=== PATIENT | male | born 1985 | race Two or more races ===

== ENCOUNTER 2020-08-23 14:33 | Emergency (ER) | payer MEDICAID ==
[~2020-08-23] VITALS: Ht 182.9 cm; Wt 115.0 kg
[~2020-08-23 14:33] MED LIST: LISI-170 PO; OMEP20CA9
--- NOTE | 2020-08-23 14:47 | NUR ---
PT MIGUEL FROM [facility] [place]. PER EMS PT HAS HAD CP X1 DAY. HX OF HTN, IS NONCOMPLIANT WITH PRESCRIBED LISINIPRIL. BP CURRENTLY 156/107. PER EMS PT GOT 324 CHEWABLE ASPIRIN AND 1 NITRO TAB AT 1400, THIS DID NOT HELP THE PAIN. PT RESTING IN [facility], MONITORING IN PLACE, EKG DONE, NADN AT THIS TIME, WCTM.
[2020-08-23] MEDS ORDERED: ONDANSETRON 2MG/ML, 2ML ONE (14:59)
[2020-08-23] MEDS ORDERED: SODIUM CHLORIDE FLUSH 10ML SYR IVF ONE (15:00)
[2020-08-23] MEDS ORDERED: ONDANSETRON 2MG/ML, 2ML IVPush ONE (15:00)
[2020-08-23] MEDS ORDERED: SODIUM CHLORIDE 0.9% 1,000ML IVBOLUS ONE (15:00)
[2020-08-23] MEDS ORDERED: LABETALOL 5MG/ML, 20ML IVPush ONE (15:49)
[2020-08-23] MEDS ORDERED: LABETALOL 5MG/ML, 20ML ONE (15:52)
[2020-08-23 16:25] LABS: BASOPHILS % (AUTO) 1 % (0-1); EOSINOPHILS % (AUTO) 1 % (1-7); LYMPHOCYTES % (AUTO) 36 % (22-44); MEAN CORPUSCULAR HEMOGLOBIN 32.1 pg (27.5-34.5); MEAN CORPUSCULAR HGB CONC 33.5 g/dL (33.2-36.2); MEAN PLATELET VOLUME 8.1 fL (7.4-10.4); MONOCYTES % (AUTO) 11 % (2-9); NEUTROPHILS % (AUTO) 52 % (42-75); PLATELET COUNT 218 x10^3/uL (130-400); RED BLOOD COUNT 5.21 x10^6/uL (4.38-5.82); RED CELL DISTRIBUTION WIDTH 14.3 % (9.4-14.8)
[2020-08-23 16:36] LABS: ALBUMIN 3.7 g/dL (3.4-5.0); ANION GAP 13 mmol/L (5-15); CALCIUM 7.8 mg/dL (8.5-10.1); CHLORIDE 106 mmol/L (98-107)
[2020-08-23 16:42] LABS: ALANINE AMINOTRANSFERASE 39 U/L (12-78); ALKALINE PHOSPHATASE 100 U/L (45-117); BILIRUBIN,TOTAL 0.4 mg/dL (0.2-1.0); CREATININE 1.03 mg/dL (0.7-1.3); TOTAL PROTEIN 7.7 g/dL (6.4-8.2); TROPONIN I < 0.015 ng/mL (0.000-0.045)
[2020-08-23 16:46] LABS: MD NO
--- NOTE | 2020-08-23 16:46 | NUR ---
PT CONTINUES TO BE UNABLE TO PROVIDE URINE SAMPLE.
[2020-08-23] MEDS ORDERED: LORazepam 2 MG/ML, 1ML ONE (17:30)
[2020-08-23] MEDS ORDERED: LORazepam 2 MG/ML, 1ML IVPush ONE (17:30)
[2020-08-23] MEDS ORDERED: OMNIPAQUE 350 MG/ML, 100ML BOTTLE ONE (18:03)
--- NOTE | 2020-08-23 18:40 | NUR ---
PT PROVIDED URINE SAMPLE, SAMPLE SENT TO LAB.
[2020-08-23 19:07] LABS: AMPHETAMINE SCREEN, URINE Positive (Negative); BARBITURATE SCREEN, URINE Negative (Negative); BENZODIAZEPINE SCREEN, URINE Positive (Negative); CANNABINOID SCREEN, URINE Negative (Negative); COCAINE SCREEN, URINE Negative (Negative); METHADONE SCREEN, URINE Negative (Negative); OPIATE SCREEN, URINE Negative (Negative)
[2020-08-23 19:28] VITALS: BP 173/112
== END 2020-08-23 19:31 | disposition home or self-care (01) ==
LOC: ED 19:15
DX: R07.89 Other chest pain (principal); R06.00 Dyspnea, unspecified; F15.10 Other stimulant abuse, uncomplicated; I10 Essential (primary) hypertension; R00.0 Tachycardia, unspecified; F41.9 Anxiety disorder, unspecified
CPT/HCPCS: 36415; 71046; 71275; 80053; 80307; 83735; 83880; 84484; 85025; 85379; 93005; 96361; 96374; 96375; 99285; J2060; J2405; J7030; Q9967

== ENCOUNTER 2020-10-13 14:00 | Emergency (ER) | payer MEDICAID ==
[~2020-10-13] VITALS: Ht 182.9 cm; Wt 113.5 kg
[2020-10-13] MEDS ORDERED: METOPROLOL 1 MG/ML, 5ML ONE ×3 (14:11→15:47)
[2020-10-13] MEDS ORDERED: NITROGLYCERIN OINT 2%, 1GM TP ONE (14:11)
--- NOTE | 2020-10-13 14:29 | NUR ---
PT BIB EMS FOR CP THAT HAS BEEN OCCURING X 7 DAYS, INTERMITTENT. PT STATES THE PAIN HAS BEEN GETTING WORSE AND PER EMS PAIN WAS 8/10 BUT DECREASED TO UNDER 5 AFTER 324 ASA AND 1 0.4 MG NITRO. PT STATES THE PAIN INCREASES WHEN HE PRESSES ON THE LEFT SIDE OF HIS CHEST. PIV STARTED BY EMS PLATE FITTER. PT ALSO REC'VD 50 ML NS BY EMS. PT REQUESTING MEDICATION FOR ANXIETY.
[2020-10-13] MEDS ORDERED: METOPROLOL 1 MG/ML, 5ML IVPush PRN (14:30)
--- NOTE | 2020-10-13 14:30 | NUR ---
RECEIVED REPORT FROM LIBBY MARTINEZ. ASSUMING CARE AT THIS TIME. [employer] AT BEDSIDE FOR REPEAT EKG. LAB AT BEDSIDE.
[2020-10-13] MEDS: METOPROLOL 1 MG/ML, 5ML IVPush PRN ×3 (14:33→15:51)
[2020-10-13 14:42] LABS: BASOPHILS % (AUTO) 1 % (0-1); EOSINOPHILS % (AUTO) 1 % (1-7); LYMPHOCYTES % (AUTO) 46 % (22-44); MEAN CORPUSCULAR HEMOGLOBIN 31.6 pg (27.5-34.5); MEAN CORPUSCULAR HGB CONC 34.2 g/dL (33.2-36.2); MEAN PLATELET VOLUME 7.2 fL (7.4-10.4); MONOCYTES % (AUTO) 8 % (2-9); NEUTROPHILS % (AUTO) 45 % (42-75); PLATELET COUNT 362 x10^3/uL (130-400); RED BLOOD COUNT 5.13 x10^6/uL (4.38-5.82); RED CELL DISTRIBUTION WIDTH 14.2 % (9.4-14.8)
[2020-10-13 14:43] LABS: MD NO
[2020-10-13 14:51] LABS: ALANINE AMINOTRANSFERASE 30 U/L (12-78); ALBUMIN 3.7 g/dL (3.4-5.0); ANION GAP 12 mmol/L (5-15); CHLORIDE 106 mmol/L (98-107); CREATININE 1.04 mg/dL (0.7-1.3)
[2020-10-13 14:54] LABS: ALKALINE PHOSPHATASE 116 U/L (45-117); BILIRUBIN,TOTAL 0.2 mg/dL (0.2-1.0); TOTAL PROTEIN 7.8 g/dL (6.4-8.2)
--- NOTE | 2020-10-13 14:55 | NUR ---
ALL RESULTS ARE BACK AT THIS TIME. CHART UP FOR RECHECK.
[2020-10-13] MEDS ORDERED: CEFTRIAXONE PMX 1GM/50ML 50 ML ONE (15:07)
[2020-10-13 15:23] LABS: TROPONIN I < 0.015 ng/mL (0.000-0.045)
[2020-10-13] MEDS ORDERED: CEFTRIAXONE PMX 1GM/50ML 50 ML IV ONE (15:30)
[2020-10-13 16:07] VITALS: BP 159/89
== END 2020-10-13 16:21 | disposition home or self-care (01) ==
LOC: ED 16:10
DX: J18.9 Pneumonia, unspecified organism (principal); F41.1 Generalized anxiety disorder; I10 Essential (primary) hypertension; R07.89 Other chest pain; R00.0 Tachycardia, unspecified; R50.9 Fever, unspecified
CPT/HCPCS: 36415; 71045; 80053; 84484; 85025; 93005; 96365; 96375; 99285; J0696

== ENCOUNTER 2020-10-15 02:27 | Emergency (ER) | payer MEDICAID ==
[~2020-10-15] VITALS: Ht 185.4 cm; Wt 105.0 kg
--- NOTE | 2020-10-15 02:37 | NUR ---
PT COMPLAINING OF CHEST PAIN X 2 DAYS. PAIN IS NON RADIATING. PAIN 8/10 PAIN IS CONSTANT AND HEAVY. PT IS HYPERTENSIVE UPON ARRIVAL. PT WAS JUST DISCHARGED FROM [facility] APPROX 30 MIN AGO AND DIAGDOSED WITH ANXIETY. PT HAS HX OF HTN AND TAKE LISINOPRIL. PT PLACED ON [employer] AND CALL LIGHT IN REACH
[2020-10-15] MEDS ORDERED: LORazepam 1MG TABLET ONE (03:30)
[2020-10-15] MEDS ORDERED: LORazepam 1MG TABLET PO ONE (03:30)
--- NOTE | 2020-10-15 03:35 | NUR ---
PT MEDICATED FOR ANXIETY. WAITING FOR [facility] RECORDS
--- NOTE | 2020-10-15 04:09 | NUR ---
PT TO BE DISCHARGED. PT SLEEPING IN NAD WHEN RN CHECKED ON PT. MD AWARE OF ELEVATED BP. PT EDUCATED TO TAKE HOME MEDICATION FOR HTN.
[2020-10-15 04:19] VITALS: BP 197/115
== END 2020-10-15 04:21 | disposition home or self-care (01) ==
LOC: ED 04:15
DX: F41.1 Generalized anxiety disorder (principal); I10 Essential (primary) hypertension; R07.9 Chest pain, unspecified
CPT/HCPCS: 93005; 99283

== ENCOUNTER 2020-12-26 09:52 | Emergency (ER) | payer MEDICAID ==
[~2020-12-26] VITALS: Ht 185.4 cm; Wt 106.0 kg
--- NOTE | 2020-12-26 09:53 | NUR ---
PT MIGUEL FROM [facility] [employer] FOR C/O ETOH. PER EMS PT DRANK 1L BACARDI D/T FEELING ANXIOUS. PT C/O REFLUX. PT A&OX3. PT CONNECTED TO MONITORS. CALL LIGHT WITHIN REACH
--- NOTE | 2020-12-26 10:39 | NUR ---
PA AT BS
[2020-12-26] MEDS ORDERED: SODIUM CHLORIDE FLUSH 10ML SYR IVF ONE (11:00)
[2020-12-26] MEDS ORDERED: SODIUM CHLORIDE 0.9% 1,000ML IVBOLUS ONE (11:00)
[2020-12-26 11:11] LABS: BASOPHILS % (AUTO) 1 % (0-1); EOSINOPHILS % (AUTO) 0 % (1-7); LYMPHOCYTES % (AUTO) 25 % (22-44); MEAN CORPUSCULAR HEMOGLOBIN 32.3 pg (27.5-34.5); MEAN CORPUSCULAR HGB CONC 34.6 g/dL (33.2-36.2); MEAN PLATELET VOLUME 7.5 fL (7.4-10.4); MONOCYTES % (AUTO) 9 % (2-9); NEUTROPHILS % (AUTO) 65 % (42-75); PLATELET COUNT 305 x10^3/uL (130-400); RED BLOOD COUNT 5.34 x10^6/uL (4.38-5.82); RED CELL DISTRIBUTION WIDTH 16.1 % (9.4-14.8)
--- NOTE | 2020-12-26 11:15 | NUR ---
PT TOOK PIV, TOOL TENDER OFF. PT TOLD IF SECURITY WILL BE CALLED IF HE CANNOT KEEP MONITORS IN PLACE
[2020-12-26 11:17] LABS: ALANINE AMINOTRANSFERASE 52 U/L (12-78); ALBUMIN 3.8 g/dL (3.4-5.0); ANION GAP 18 mmol/L (5-15); CALCIUM 7.6 mg/dL (8.5-10.1); CHLORIDE 101 mmol/L (98-107); CREATININE 1.04 mg/dL (0.7-1.3)
[2020-12-26 11:22] LABS: ALKALINE PHOSPHATASE 109 U/L (45-117); BILIRUBIN,TOTAL 0.5 mg/dL (0.2-1.0); TROPONIN I < 0.015 ng/mL (0.000-0.045)
--- NOTE | 2020-12-26 11:53 | NUR ---
PT TO CT
[2020-12-26] MEDS ORDERED: OMNIPAQUE 350 MG/ML, 100ML BOTTLE ONE (12:06)
--- NOTE | 2020-12-26 12:11 | NUR ---
PT BACK FROM CT. PT SITTING ON SHANIQUA CHAIDEZ/CYNTHIA. CALL LIGHT WITHIN REACH
--- NOTE | 2020-12-26 13:10 | NUR ---
PT SITTING ON GURNEY, W/ NEW COMPLAINTS EVERY 30 MINUTES. NADN/VSS. CALL LIGHT WITHIN REACH. PT NOTIFIED CHART IS UP FOR RECHECK
--- NOTE | 2020-12-26 13:21 | NUR ---
AMBULATED TO RESTROOM WITH STEADY GAIT, NOTIFIED
[2020-12-26 13:28] VITALS: BP 179/93
--- NOTE | 2020-12-26 13:55 | NUR ---
Patient given discharge instructions and they have confirmed that they understand the instructions. Patient ambulatory with steady gait.
== END 2020-12-26 14:00 | disposition home or self-care (01) ==
LOC: ED 10:20
DX: R07.89 Other chest pain (principal); R07.2 Precordial pain; I10 Essential (primary) hypertension; F10.129 Alcohol abuse with intoxication, unspecified; F15.129 Other stimulant abuse with intoxication, unspecified; F41.1 Generalized anxiety disorder; R00.0 Tachycardia, unspecified; Y90.0 Blood alcohol level of less than 20 mg/100 ml
CPT/HCPCS: 36415; 71045; 71275; 80053; 83690; 84484; 85025; 93005; 96360; 99285; J7030; Q9967